=== PATIENT | female | born 1970 | race Caucasian/White ===

== ENCOUNTER 2017-09-16 12:42 | Emergency (ER) | payer BC, OTHER ==
[2017-09-16] MEDS ORDERED: IBUPROFEN 600 MG TABLET PO ONE (13:06)
[2017-09-16] MEDS ORDERED: PREDNISONE 20 MG TAB PO ONE (13:06)
--- NOTE | 2017-09-16 13:11 | Emergency Department Record ---
History of Present Illness - General Chief complaint: Allergic Reaction Stated complaint: REACTION Time Seen by Provider: 09/16/17 13:02 Source: Patient Mode of Arrival: Ambulatory Limitations: No limitations - History of Present Illness Initial Comments: The patient is here due to receiving a Tetanus and MMR shot yesterday at the [facility] and now she appears to have a local allergic rxn at the sites. Both sites have an erythematous circular area of mild swelling and pain. She denies any CP, SOB, PAU, or difficulty swallowing. She has had a local allergic reaction to bee stings in the past and once to a flu shot similar to this. MD Complaint: Allergic reaction Onset/Timin -: Days(s) Exposure: Medication Symptoms: Other Severity: Mild Treatment Prior to Arrival: None Previous Allergy History: None - Related Data Home Medications Medication Instructions Recorded Confirmed Last Taken Epinephrine [Epipen] 0.3 mg IM ASDIR PRN 09/16/17 09/16/17 Unknown Previous Rx's Medication Instructions Recorded Prednisone [Prednisone 20Mg] 40 mg PO DAILY #8 tab 09/16/17 Allergies Allergy/AdvReac Type Severity Reaction Status Date / Time bee venom protein (honey bee) Allergy SWELLING Verified 09/16/17 12:48 (GENERAL) Travel Screening - Travel/Exposure Within Last 30 Days Have you traveled within the last 30 days?: No Review of Systems Constitutional: Denies: Chills, Fever Eyes: Denies: Eye discharge ENT: Denies: Congestion Respiratory: Denies: Cough, Dyspnea Past Medical History - SOCIAL HISTORY Smoking Status: Never smoker Alcohol Use: None Drug Use: None - RESPIRATORY Hx Respiratory Disorders: No - CARDIOVASCULAR Hx Cardio Disorders: No - NEURO Hx Neuro Disorders: No - GI Hx GI Disorders: No - Hx Genitourinary Disorders: Yes Hx Kidney Stones: Yes - ENDOCRINE Hx Endocrine Disorders: No - MUSCULOSKELETAL Hx Musculoskeletal Disorders: No - PSYCH Hx Psych Problems: No - HEMATOLOGY/ONCOLOGY Hx Hematology/Oncology Disorders: Yes Hx Cancer: Yes (cervical) Hx Chemotherapy: No Hx Radiation Therapy: No Family Medical History Any Significant Family History?: No Physical Exam - General General Appearance: Alert, Oriented x3, Cooperative, No acute distress - Head Head exam: Atraumatic, Normocephalic, Normal inspection - Eye Eye exam: Normal appearance, PERRL - ENT Throat exam: Normal inspection. negative: Tonsillar erythema, Tonsillar exudate - Neck Neck exam: Normal inspection, Full ROM. negative: Tenderness - Respiratory Respiratory exam: Normal lung sounds bilaterally. negative: Respiratory distress - Cardiovascular Cardiovascular Exam: Regular rate, Normal rhythm, Normal heart sounds - Extremities Extremities exam: Full ROM, Tenderness (at the local allergic reaction sites.). negative: Normal inspection (There are two circular erythematous lesions to the R lateral arm each measuring 2.5 cm in diameter with mild tenderness. There is no cellulitis.) Course Vital Signs 09/16/17 12:44 Temperature 98.6 F Pulse Rate 90 Respiratory 18 Rate Blood Pressure 139/101 Pulse Ox 94 L - Reevaluation(s) Reevaluation #1: I did explain to the patient that it appears she has local allergic reactions to the medicines. She is to use Tylenol or Motrin for pain and when home a short course of an antihistamine and oral steroids. 09/16/17 13:10 Disposition Disposition: Discharge Clinical Impression: Allergic reaction caused by a drug Qualifiers: Encounter type: initial encounter Qualified Code(s): T78.40XA - Allergy, unspecified, initial encounter Disposition: Home, Self-Care Condition: (2) Stable Instructions: General Allergic Reaction (ED) Additional Instructions: Please take Tylenol or Motrin for pain and take an OTC antihistamine when home for 5 days. Continue the Prednisone tomorrow. Please return to the ER for any worsening swelling, redness, pain or any trouble breathing. Prescriptions: Prednisone [Prednisone 20Mg] 40 mg PO DAILY #8 tab Forms: Patient Portal Access Time of Disposition: 13:22 Quality - Quality Measures Quality Measures: N/A - Blood Pressure Screening View Details: Yes Does Patient Have Any of the Following: No Blood Pressure Classification: Hypertensive Reading Systolic Measurement: 139 Diastolic Measurement: 101 Screening for High Blood Pressure: < First Hypertensive BP, F/U Documented > [ G8950] First Hypertensive Follow-up Interventions: Referral to alternative/primary care provider.
== END 2017-09-16 13:28 | disposition home or self-care (01) ==
LOC: ER 12:42
DX: T80.62XA Other serum reaction due to vaccination, initial encounter (principal); T50.B95A Adverse effect of other viral vaccines, initial encounter; T50.A95A Adverse effect of other bacterial vaccines, initial encounter; L53.8 Other specified erythematous conditions; Y84.8 Other medical procedures as the cause of abnormal reaction of the patient, or of later complication, without mention of misadventure at the time of the procedure; Y82.8 Other medical devices associated with adverse incidents; Y92.238 Other place in hospital as the place of occurrence of the external cause; Y99.0 Civilian activity done for income or pay
CPT/HCPCS: 99282; J7512

== ENCOUNTER 2018-11-29 13:30 | Emergency (ER) | payer BC ==
[2018-11-29] MEDS ORDERED: CLONIDINE HCL 0.1 MG TABLET PO ONE ×2 (14:39→15:52)
--- NOTE | 2018-11-29 14:40 | Emergency Department Record ---
History of Present Illness - General Chief Complaint: Hypertension Stated Complaint: HI BLOOD PRESSURE Time Seen by Provider: 11/29/18 14:25 Source: Patient Mode of Arrival: Ambulatory - History of Present Illness Initial Comments: The patient states she has elevated blood pressure with a headache that is bad but not the worst of her life. She is aware that her blood pressure has been elevated over quite a few months into the 170's systolic. She had one blood pressure that was 167/115 earlier today. She states her headache is bi-temporal and her eyes feel lots of pressure on them, so she squints. She has not had blood work for several months. She denies MO, CVA, PE, or htn in the past. She has been to here PCP but her PCP is not aware that her blood pressure has been r eading high. Description: Lightheadedness, Nausea History of Same: Yes History of Trauma: No Improves With: Remaining still, Rest Worsens With: Movement, Exertion Associated Symptoms: Denies other symptoms - Gem Coma Scale Eye Response: (4) Open spontaneously Motor Response: (6) Obeys commands Verbal Response: (5) Oriented [place] Total: 15 - Related Data Allergies Allergy/AdvReac Type Severity Reaction Status Date / Time bee venom protein (honey bee) Allergy SWELLING Unverified 07/21/18 16:29 (GENERAL) Travel Screening - Travel/Exposure Within Last 30 Days Have you traveled within the last 30 days?: No - Travel/Exposure Within Last Year Have you traveled outside the [place] in the last year?: No - Additonal Travel Details Have you been exposed to anyone with a communicable illness?: No - Travel Symptoms Symptom Screening: Headache Review of Systems Reviewed: No additional complaints except as noted below Constitutional: Reports: As per HPI. Denies: Chills, Fever, Malaise, Night sweats, Weakness, Weight change Eyes: Reports: As per HPI. Denies: Eye discharge, Eye pain, Photophobia, Vision change ENT: Reports: As per HPI. Denies: Congestion, Dental pain, Ear pain, Epistaxis, Hearing loss, Throat pain Respiratory: Reports: As per HPI. Denies: Cough, Dyspnea, Hemoptysis, Stridor, Wheezes Cardiovascular: Reports: As per HPI. Denies: Arrhythmia, Chest pain, Dyspnea on exertion, Edema, Murmurs, Orthopnea, Palpitations, Paroxysmal nocturnal dyspnea, Rheumatic Fever, Syncope Endocrine: Reports: As per HPI. Denies: Fatigue, Heat or cold intolerance, Polydipsia, Polyuria Gastrointestinal: Reports: As per HPI. Denies: Abdominal pain, Constipation, Diarrhea, Hematemesis, Hematochezia, Melena, Nausea, Vomiting Genitourinary: Reports: As per HPI. Denies: Abnormal menses, Discharge, Dyspareunia, Dysuria, Frequency, Hematuria, Incontinence, Retention, Urgency Musculoskeletal: Reports: As per HPI. Denies: Arthralgia, Back pain, Gout, Joint swelling, Myalgia, Neck pain Skin: Reports: As per HPI. Denies: Bruising, Change in color, Change in hair/nails, Lesions, Pruritus, Rash Neurological: Reports: As per HPI. Denies: Abnormal gait, Confusion, Headache, Numbness, Paresthesias, Seizure, Tingling, Tremors, Vertigo, Weakness Psychiatric: Reports: As per HPI. Denies: Anxiety, Auditory hallucinations, Depression, Homicidal thoughts, Suicidal thoughts, Visual hallucinations Hematological/Lymphatic: Reports: As per HPI. Denies: Anemia, Blood Clots, Easy bleeding, Easy bruising, Swollen glands Past Medical History - SOCIAL HISTORY Smoking Status: Never smoker Alcohol Use: None Drug Use: None - RESPIRATORY Hx Respiratory Disorders: No - CARDIOVASCULAR Hx Cardio Disorders: Yes Hx Hypertension: Yes (occasionally) - NEURO Hx Neuro Disorders: No - GI Hx GI Disorders: No - Hx Genitourinary Disorders: Yes Hx Kidney Stones: Yes - ENDOCRINE Hx Endocrine Disorders: No - MUSCULOSKELETAL Hx Musculoskeletal Disorders: No - PSYCH Hx Psych Problems: No - HEMATOLOGY/ONCOLOGY Hx Hematology/Oncology Disorders: Yes Hx Cancer: Yes (cervical) Hx Chemotherapy: No Hx Radiation Therapy: No Family Medical History Any Significant Family History?: No Physical Exam - General General Appearance: Alert, Oriented x3, Cooperative, Mild distress (sitting in dark room with eyes closed) - Head Head exam: Normal inspection - Eye Eye exam: Normal appearance, PERRL, EOMI. negative: Conjunctival injection, Nystagmus Pupils: Normal accommodation - ENT ENT exam: Normal exam, Mucous membranes moist, Normal external ear exam, Normal orophraynx, TM's normal bilaterally Ear exam: Normal external inspection. negative: External canal tenderness Nasal Exam: Normal inspection. negative: Discharge, Sinus tenderness Mouth exam: Normal external inspection, Tongue normal Teeth exam: Normal inspection. negative: Dental caries Throat exam: Normal inspection. negative: Tonsillar erythema, Tonsillar exudate - Neck Neck exam: Normal inspection, Full ROM. negative: Lymphadenopathy, Meningismus, Tenderness - Respiratory Respiratory exam: Normal lung sounds bilaterally. negative: Chest wall tenderness, Decreased breath sounds, Prolonged expiratory, Respiratory distress - Cardiovascular Cardiovascular Exam: Regular rate, Normal rhythm, Normal heart sounds - GI/Abdominal GI/Abdominal exam: Soft, Normal bowel sounds. negative: Tenderness - Rectal Rectal exam: Deferred - exam: Deferred - Extremities Extremities exam: Normal inspection, Full ROM, Normal capillary refill. negative: Calf tenderness, Pedal edema, Tenderness - Back Back exam: Reports: Normal inspection, Full ROM. Denies: CVA tenderness (R), CVA tenderness (L), Muscle spasm, Rash noted, Tenderness - Neurological Neurological exam: Alert, CN II-XII intact, Normal gait, Oriented X3, Reflexes normal. negative: Motor sensory deficit - Psychiatric Psychiatric exam: Normal affect, Normal mood - Skin Skin exam: Dry, Intact, Normal color, Warm Course Vital Signs 11/29/18 13:42 Temperature 97.9 F Pulse Rate 75 Respiratory 16 Rate Blood Pressure 166/100 Pulse Ox 97 - Reevaluation(s) Reevaluation #1: The patient states she is feeling better with improved headache but with mild change in her blood pressure 150/88. 11/29/18 15:53 Reevaluation #2: Repeat blood pressure is now 128/76. All results discussed. All questions answered. Her headache is greatly improved. She is ready for DC home. She will follow with her PCP this week for blood pressure management. 11/29/18 16:39 Medical Decision Making - Management Options MDM Management: No Additional Work-up Planned - Data Complexity MDM Data: Labs Ordered and/or Reviewed, X-Ray Ordered and/or Reviewed (Noncontrast Head CT: Neg per radiologist), EKG Ordered and/or Reviewed - Lab Data Result diagrams: 11/29/18 15:00 11/29/18 15:00 - EKG Data -: EKG Interpreted by Me (NSR @ 62, L axis, no acute abnormality.) Disposition Disposition: Discharge Clinical Impression: Hypertensive urgency Disposition: Home, Self-Care Condition: (1) Good Instructions: Hypertension (ED), Acute Headache (ED) Additional Instructions: Home, rest. PCP follow up this week: call for appointment for management of blood pressure. Tylenol as needed as directed for headache. Quality - Quality Measures Quality Measures: N/A - Blood Pressure Screening Does Patient Have Any of the Following: No Blood Pressure Classification: Hypertensive Reading Systolic Measurement: 166 Diastolic Measurement: 100 Screening for High Blood Pressure: < First Hypertensive BP, F/U Documented > [G8950] First Hypertensive Follow-up Interventions: Follow-up with rescreen GT 1 day and LT 4 weeks., Lifestyle modifications. Lifestyle Modification: Weight Reduction, Dietary Approaches to Stop Hypertension (DASH) Eating Plan, Dietary Sodium Restriction, Increased Physical Activity, Moderation in alcohol (ETOH) consumption
[2018-11-29 15:05] LABS: ABSOLUTE NEUTROPHIL COUNT 3.65; BASO % 0.6 % (0-6); EOS % 2.7 % (0-6); HEMATOCRIT 43.1 % (35.0-47.0); HEMOGLOBIN 14.3 gm/dl (11.6-16.0); LYMPH % 38.1 % (16-45); MEAN CELL VOLUME 81.6 fl (81-97); MEAN CORPUSCULAR HEMOGLOBIN 27.1 pg (27-33); MEAN CORPUSCULAR HGB CONC 33.2 g/dl (32-36); MEAN PLATELET VOLUME 9.7 fl (7.4-10.4); MONO % 7.6 % (0-9); PLATELET COUNT 289 K/uL (130-400); RED BLOOD COUNT 5.28 M/uL (3.80-5.40); WHITE BLOOD COUNT W/O DIFF 7.1 K/uL (4.2-12.2)
[2018-11-29 15:19] LABS: PARTIAL THROMBOPLASTIN TIME 27.1 SECONDS (24.5-39.1); PROTHROMBIN TIME (PATIENT) 10.2 SECONDS (9.5-12.1)
[2018-11-29 15:20] LABS: BLOOD UREA NITROGEN 12 mg/dL (6-20); CREATININE 0.6 mg/dL (0.5-0.9); EST GLOMERULAR FILTRATION RATE > 60 mL/min
[2018-11-29 15:21] LABS: TOTAL PROTEIN 7.6 g/dL (6.6-8.7)
[2018-11-29 15:23] LABS: GLUCOSE,RANDOM 85 mg/dL (74-109)
[2018-11-29 15:25] LABS: ALB/GLOB RATIO 1.6 (1.1-1.8); ALBUMIN 4.7 g/dL (4.0-5.0); ALKALINE PHOSPHATASE 105 U/L (35-104); ALT/SGPT 28 U/L (<33); AST/SGOT 20 U/L (10.0-35.0)
[2018-11-29 16:08] LABS: URINE APPEARANCE CLEAR; URINE BILIRUBIN NEGATIVE (NEGATIVE); URINE BLOOD NEGATIVE (NEGATIVE); URINE COLOR YELLOW; URINE GLUCOSE (UA) NEGATIVE (NEGATIVE); URINE KETONE NEGATIVE (NEGATIVE); URINE LEUKOCYTE ESTERASE NEGATIVE (NEGATIVE); URINE NITRITE NEGATIVE (NEGATIVE); URINE PROTEIN NEGATIVE (NEGATIVE); URINE UROBILINOGEN 0.2 E.U./dL (0.20 - 1.00)
--- NOTE | 2018-12-01 07:31 | CT SCAN REPORT ---
EXAM: CT OF THE HEAD WITHOUT CONTRAST HISTORY: WOKE UP WITH FRONTAL HEADACHE, HIGH BLOOD PRESSURE. NO KNOWN INJURY. TECHNIQUE: Standard CT imaging of the head was obtained without contrast. Coronal and sagittal reformations are provided. Comparison: None. FINDINGS: The ventricles, sulci, and basal cisterns are normal. No intracranial hemorrhage or extraaxial fluid collections are identified. The blum white matter differentiation is maintained. No significant mass effect or midline shift. Minimal mucosal thickening in the maxillary sinuses without layering fluid. The mastoid air cells are clear. IMPRESSION: NO ACUTE INTRACRANIAL ABNORMALITY IS IDENTIFIED. JOB NUMBER: [id number] [facility]
== END 2018-11-29 16:53 | disposition home or self-care (01) ==
LOC: ER 13:30
DX: I16.0 Hypertensive urgency (principal); R51 Headache
CPT/HCPCS: 70450; 80053; 81003; 85025; 85610; 85730; 93005; 93010; 99284

== ENCOUNTER 2019-02-20 07:53 | Day surgery (SDC) | payer BC ==
[2019-02-20] MEDS ORDERED: PROPOFOL 10 MG/ML VIAL IV ONE (07:54)
[2019-02-20] MEDS ORDERED: FENTANYL PF 100MCG/2ML VIAL IV ONE (07:54)
[2019-02-20] MEDS ORDERED: LIDOCAINE 2% MDV (20MG/ML) 20ML VIAL IV ONE (07:54)
--- NOTE | 2019-02-21 06:02 | Operative Note ---
OPERATION: COLONOSCOPY to the cecum and terminal ileum. INDICATION: Colorectal cancer screening. ANESTHESIA: Intravenous sedation was administered by the department of anesthesiology and included Diprivan titrated to effect. PROCEDURE: Following informed consent from this alert individual including a discussion of the risks and benefits of the procedure and an opportunity for the patient to ask questions, the patient was in the left lateral decubitus position. A digital rectal examination was performed. No abnormalities were noted. Following this, the Olympus [id number] video colonoscope was inserted into the rectum without resistance. The rectal mucosa had a normal appearance with normal folds and distensibility. The colonoscope was advanced up through the colon to the level of the cecum without much difficulty. Throughout the bowel the mucosa appeared normal, the folds were normal, and the bowel was fairly well distensible. The cecum was defined by noting the appendiceal orifice and ileocecal valve. The terminal ileum was then cannulated and found to be unremarkable as well. The colon preparation overall was good. From the base of the cecum, the colonoscope was then slowly withdrawn. No changes were noted until the rectum was reached. In the proximal rectum, there was a diminutive 4 mm polyp noted which was removed with cold snare polypectomy and suctioned through the colonoscope into a collection trap. No other changes were appreciated. Retroflexion within the rectum was endoscopically normal. The instrument was straightened and removed. The patient tolerated the procedure well and was returned to the recovery area in stable condition. IMPRESSION: 1. A 4 mm proximal rectal polyp removed with cold snare polypectomy. 2. Otherwise unremarkable colonoscopy to the cecum and terminal ileum. RECOMMENDATIONS: The patient was advised she should receive a copy of her pathology report at home in the next 1-2 weeks. If not, she was asked to call my office to review the results of testing today. Further recommendations will be forthcoming pending those results. Followup will also be with Suri Bustillo, nurse practitioner. As always, thank you for allowing me to participate in the care of your patient. RITA
--- NOTE | 2019-02-21 06:02 | Operative Note ---
OPERATION: ESOPHAGOGASTRODUODENOSCOPY with biopsy. INDICATION: Chronic gastroesophageal reflux with pyrosis. Upper endoscopy is performed at this time for further evaluation. ANESTHESIA: Intravenous sedation was administered by the department of anesthesiology and included Diprivan titrated to effect. PROCEDURE: Following informed consent from this alert individual, including a discussion of the risks and benefits of the procedure and an opportunity for the patient to ask questions, the patient was in the left lateral decubitus position. The Olympus [id number] video endoscope was inserted into the esophagus without resistance. The proximal esophagus had a normal appearance with normal folds and distensibility. The distal esophageal segment demonstrated some slight irregularity at the squamocolumnar junction with erythematous mucosa. Biopsies were taken. There were no ulcerations or erosions noted. The stomach was then entered and found to be normal. The pylorus was patent. The duodenal bulb, sweep and descending duodenum were examined in a serial fashion and found to be normal as well. The endoscope was then withdrawn back into the body of the stomach. Retroflexion accomplished following air insufflation failed to demonstrate any changes. The endoscope was then straightened and withdrawn to the GE junction where biopsies as mentioned above were taken. The endoscope was then further withdrawn through a normal mid and proximal esophagus and removed from the patient. The patient tolerated the procedure well and was returned to the recovery area in stable condition. IMPRESSION: Distal esophagitis with slight irregularity of the squamocolumnar junction. Biopsies taken. RECOMMENDATION: Further recommendations forthcoming. Followup will be with Suri Bustillo, nurse practitioner. The patient can continue with omeprazole pending biopsies. As always, thank you for allowing me to participate in the care of your patient. RITA
== END 2019-02-20 09:50 | disposition home or self-care (01) ==
LOC: HOP 07:53
PROVIDERS: ATTEND Internal Medicine Gastroenterology
DX: Z12.11 Encounter for screening for malignant neoplasm of colon (principal); K62.1 Rectal polyp; K21.9 Gastro-esophageal reflux disease without esophagitis; R12 Heartburn; K20.8 Other esophagitis; K31.89 Other diseases of stomach and duodenum; K86.89 Other specified diseases of pancreas